=== PATIENT | male | born 1970 ===

== ENCOUNTER 2016-12-24 06:07 | Inpatient (IN) | payer OTHER ==
[~2016-12-24] VITALS: Ht 175.3 cm; Wt 120.2 kg
[2016-12-24] VITALS (13 sets, daily range): BP systolic 99–126; BP diastolic 54–80
[~2016-12-24 06:07] MED LIST: CYCLOBENZAPRINE10 MG ORAL; LR 1000ml 1,000 ML IV SCH; NAPROXEN500 M2 ORAL; ceFAZolin sod 2 GM in D5W 110 ML IVPB ONE
[2016-12-24 07:22] LABS: APPEARANCE,URINE CLEAR; KETONES,URINE NEGATIVE (NEGATIVE); LEUKOCYTE ESTERASE ,URINE NEGATIVE (NEGATIVE); NITRITE,URINE NEGATIVE (NEGATIVE); PH,URINE 5 (4.5-8.0); PROTEIN,URINE NEGATIVE (NEGATIVE); UROBILINOGEN,URINE NORMAL MG/DL (0.0-1.0)
[2016-12-24] MEDS ORDERED: Thrombin 5000 units TOPIC ONE (07:34)
[2016-12-24] MEDS ORDERED: Bupivacaine w/Epi 0.5% 30ml Vial INJ ONE (07:35)
[2016-12-24] MEDS ORDERED: Bacitracin 50000 Units Vial ONE (07:35)
[2016-12-24] MEDS ORDERED: Thrombin 5000 units spray kit TOPIC ONE (07:35)
[2016-12-24] MEDS ORDERED: Gelfoam Absorbable 1gm powder pkt TOPIC ONE (07:35)
[2016-12-24 07:53] LABS: BACTERIA,URINE OCCASIONAL /HPF; SQUAMOUS EPITHELIAL CELL,UR OCCASIONAL /LPF (NONE/OCC); WBC,URINE 0-2 /HPF (0 - 0)
[2016-12-24 07:54] LABS: MUCUS,URINE FEW /LPF (NONE/OCC)
[2016-12-24] MEDS ORDERED: Midazolam 2mg/2ml Inj ONE (08:00)
[2016-12-24] MEDS ORDERED: fentaNYL 100 mcg/2 mL IV ONE (08:00)
[2016-12-24] MEDS ORDERED: Glycopyrrolate 0.2mg/ml 1ml Vial ONE (08:00)
[2016-12-24] MEDS ORDERED: Propofol 10mg/ml 100ml btl IV ONE (08:00)
[2016-12-24] MEDS ORDERED: Sterile Water Irrig 1000ml IRRIG ONE (08:00)
[2016-12-24] MEDS ORDERED: Nimbex 2mg/ml Inj 10ML IVP ONE (08:00)
[2016-12-24] MEDS ORDERED: NS Irrig 1000ml ONE (08:00)
[2016-12-24] MEDS ORDERED: LR 1000ml ONE (08:00)
[2016-12-24] MEDS ORDERED: Neostigmine 1mg/ml 10ml Inj ONE (08:00)
--- NOTE | 2016-12-24 08:06 | Pre-Procedure Note/Attestation ---
Pre-Procedure Note/Attestation Complete Prior to Procedure Procedure Narrative: l45S1 r lami/discectomy Indications for Procedure Pre-Operative Diagnosis: L4-s1 Hnp with radiculopathy Attestation I attest that I discussed the nature of the procedure; its benefits; risks and complications; and alternatives (and the risks and benefits of such alternatives ), prior to the procedure, with the patient (or the patient's legal student services representative). I attest that, if there was a reasonable possibility of needing a blood transfusion, the patient (or the patient's legal student services representative) was given the [facility] standardized written summary, pursuant to the Volodymyr Genia Blood Safety Act ([place] Health and Safety Code # 1645, as amended). I attest that I re-evaluated the patient just prior to the surgery and that there has been no change in the patient's H&P, except as documented below: ANTOINE CLEMENTS Dec 24, 2016 08:06
--- NOTE | 2016-12-24 08:49 | Brief Operative Note ---
Immediate Post Operative Note Operative Note Pre-op Diagnosis: L4-s1 Hnp with radiculopathy Procedure: L45s1 Laminectomy/discectomy R side Post-op Diagnosis: same as pre-op Findings: consistent w/pre-op dx studies Surgeon: rosa Fitter Placer: jeremy lucero Anesthesiologist: brittnee Anesthesia: general Specimen: none Complications: none Condition: stable Estimated Blood Loss: minimal Drains: none Implant(s) used?: No ANTOINE CLEMENTS Dec 24, 2016 08:49
[2016-12-24] MEDS ORDERED: LR 1000ml 1,000 ML IVLG SCH (09:19)
--- NOTE | 2016-12-24 09:25 | Anethesia Preoperative Eval ---
Anesthesia Pre-op PMH/ROS General Date of Evaluation: Dec 24, 2016 Time of Evaluation: 08:00 Anesthesiologist: Raisa ASA Score: ASA 2 Mallampati Score Class I : Soft palate, uvula, fauces, pillars visible Class II: Soft palate, uvula, fauces visible Class III: Soft palate, base of uvula visible Class IV: Only hard plate visible Mallampati Classification: Class IV Surgeon: Griselda Diagnosis: Lumbar spinal stenosis Surgical Procedure: Laminectomy L4-5, L5-S1 Anesthesia History: none Family History: no anesthesia problems Allergies: Coded Allergies: No Known Allergies (Unverified , 12/23/16) Medications: see eMAR Past Medical History Cardiovascular: Denies: CAD, HTN, VT, arrhythmia, other, valve dz Pulmonary: Denies: COPD, SARITHA, asthma, other Gastrointestinal/Genitourinary: Denies: CRI, ESRD, GERD, other Neurologic/Psychiatric: Denies: CVA, TIA, dementia, depression/anxiety, other Endocrine: Denies: DM, hypothyroidism, other, steroids HEENT: Denies: [place] (L), [place] (R), cataract (L), cataract (R), glaucoma, other Hematology/Immune: Denies: DVT, anemia, bleeding disorder, other Musculoskeletal/Integumentary: Denies: DDD, DJD, OA, RA, edema, other Other: obesity PMH Narrative: Obesity PSxH Narrative: Denies prior surgery Anesthesia Pre-op Phys. Exam Physician Exam Last Vital Signs Date Time Temp Pulse Resp B/P Pulse Ox O2 Delivery O2 Flow Rate FiO2 12/24/16 07:21 98.5 66 18 109/56 96 Room Air Constitutional: NAD Neurologic: CN 2-12 intact Cardiovascular: RRR, no M/R/G Respiratory: CTA Gastrointestinal: S/NT/ND Airway Exam Mallampati Score: Class IV MO: full ROM: full Teeth: intact Anesthesia Pre-op A/P Labs WNL Studies Pre-op Studies: EKG - NSR Risk Assessment & Plan Assessment: Obese male with Class 4 airway for laminectomy L4-5, L5-S1 Plan: GETA, [place] scope intubation Status Change Before Surgery: No Pre-Antibiotics Drug: Ancef Given Within 1 Hr of Incision: Yes Time Given: 08:30 RASHEED PUENTE M.D. Dec 24, 2016 09:25
--- NOTE | 2016-12-24 09:26 | Immediate Post-Op Evaluation ---
Immediate Post-Op Evalulation Immediate Post-Op Evalulation Procedure: Lumbar laminectomy L4-5, L5-S1 Date of Evaluation: Dec 24, 2016 Time of Evaluation: 11:00 IV Fluids: 900 Estimated Blood Loss: 30 Blood Pressure Systolic: 102 Blood Pressure Diastolic: 56 Pulse Rate: 95 Respiratory Rate: 11 O2 Sat by Pulse Oximetry: 98 Temperature (Fahrenheit): 97.8 Pain Score (1-10): 1 Nausea: No Vomiting: No Complications No complication Patient Status: awake, patent, extubated, none Hydration Status: adequate Drug: Ancef Given Within 1 Hr of Incision: Yes Time Given: 08:30 RASHEED PUENTE M.D. Dec 24, 2016 09:26
[2016-12-24] MEDS ORDERED: LR 1000ml 1,000 ML IV SCH (09:30)
[2016-12-24] MEDS ORDERED: Hydromorphone 0.5mg/0.5ml inj IVP PRN (09:30)
[2016-12-24] MEDS ORDERED: Meperidine 25mg/0.5ml Inj IV PRN (09:30)
[2016-12-24] MEDS ORDERED: LORazepam Inj 2mg/ml 1ml IV PRN (09:30)
[2016-12-24] MEDS ORDERED: HYDROmorphone 1mg/ml Carpuject IVP PRN (10:15)
[2016-12-24] MEDS ORDERED: Norco 7.5mg/325mg tab ORAL PRN ×2 (10:15)
[2016-12-24] MEDS ORDERED: Metoclopramide 10mg/2ml Inj IVP PRN (10:15)
[2016-12-24] MEDS ORDERED: HYDROmorphone 1mg/ml Carpuject SUBQ PRN (10:15)
[2016-12-24] MEDS ORDERED: traMADol 50mg tab ORAL PRN (10:15)
[2016-12-24] MEDS ORDERED: Norco 5mg/325mg tab ORAL PRN (10:15)
[2016-12-24] MEDS ORDERED: Milk of Magnesia 30ml Ud ORAL PRN (10:15)
[2016-12-24] MEDS ORDERED: D5 1/2NS 1,000 ML IV SCH (13:00)
[2016-12-24] MEDS: Norco 10mg/325mg tab ORAL PRN (14:25)
[2016-12-24] MEDS: D5 1/2NS 1,000 ML IV SCH (14:26)
[2016-12-24] MEDS ORDERED: Chloraseptic Spray 20mL Bottle ORAL PRN (14:30)
[2016-12-24] MEDS: ceFAZolin sod 1 GM in D5W 55 ML IV SCH (16:54)
[2016-12-24] MEDS: Hydromorphone 0.5mg/0.5ml inj IVP PRN ×2 (17:50→20:58)
[2016-12-24] MEDS: Docusate 100mg cap ORAL SCH (18:00)
--- NOTE | 2016-12-24 20:30 | Operative Note - Dictated ---
DATE OF OPERATION: 12/24/2016 SURGEON: Giancarlo Villalobos M.D. FITNESS TRAINER: Brandon Arias PA-C. ANESTHESIOLOGIST: Dr. Galindo. ANESTHESIA TYPE: General endotracheal anesthesia. PREOPERATIVE DIAGNOSES: 1. L5-S1 disk herniation right side with radiculopathy. 2. Lateral recess stenosis L4-L5 and L5-S1. POSTOPERATIVE DIAGNOSES: 1. L5-S1 disk herniation right side with radiculopathy. 2. Lateral recess stenosis L4-L5 and L5-S1. PROCEDURE: 1. Hemilaminectomy and medial facetectomy, right side L4-5 and right-side L5-S1. 2. Microscopic diskectomy, right side L5-S1. 3. Use of operating microscope. 4. Neurolysis. 5. Neurodiagnostic monitoring. 6. Use of fluoroscopy for localization purposes. ESTIMATED BLOOD LOSS: Minimal. COMPLICATIONS: None. FINDINGS: 1. Disc extrusion right side directly under the nerve root along the lateral recess L5-S1 and notable nerve root irritation right side L4-L5 with lateral recess stenosis. 2. Chronic disc herniation with neovascularization and adhesions. INDICATIONS: The patient is a very pleasant gentleman with intractable right lower extremity radicular pain as well as mechanical back pain. MRI confirmed disc extrusion right side L5-S1 and lateral recess stenosis L4-L5. Surgical intervention was discussed and he elected to proceed after conservative care has failed. RISK NOTE: The patient was explained in detail the risks and benefits of surgery to include, but not be limited to those of bleeding, infection, damage to nerves, vessels, tendons, anesthetic risk, allergic reaction, aspiration, and possibly . The patient understood and wished to proceed. OPERATIVE PROCEDURE IN DETAIL: The patient was taken operative suite. After general endotracheal anesthesia was obtained, he was turned prone onto a radiolucent table. All bony prominences were well padded. The back was prepped and draped in usual sterile fashion. Ada were placed at L4-L5 and L5-S1 and radiographically confirmed. At this point, skin was infiltrated with Marcaine with epinephrine. Incision was carried out on the midline L4 through S1 and subperiosteal dissection was carried out. Self-retaining retractor was put into place and the level at L4-L5 was once again reconfirmed. Operating microscope was then brought into place and a hemilaminotomy on the right side L4-L5 was performed with combination of high-speed drill, Kerrison punch, curettes and pituitaries. Ligamentum flavum was removed in a piecemeal fashion. The dural sac and nerve root was identified and noted to be markedly compressed on the right side, however, once the laminectomy was performed, decompression was safely achieved. Once this area was packed off, attention was turned to the L5-S1 level. Similarly, hemilaminectomy was performed at L5 and the superior portion of S1. Medial facetectomy was performed. Ligamentum flavum was removed in a piecemeal fashion. The nerve root was exceedingly tight and markedly scarred and neurolysis was performed. Then gentle nerve root retractor was achieved until the disk extrusion could be identified. The posterior longitudinal ligament was incised and a large extruded disk fragment was delivered. Copious irrigation was performed. The disk space itself had only a minimal rent and thus we have elected not to perform a formal intradiscal decompression. Meticulous hemostasis was achieved with bipolar and FloSeal. Copious irrigation was performed. Decision was made to close. Fascia was repaired using #1 Vicryl, subcutaneous closure using 2-0 Vicryl, Dermabond and sterile dressing was applied. The patient was awaiting extubation at time of this dictation. Giancarlo Villalobos M.D. DR: TERRY JOB#: [id number] CC:
[2016-12-25] VITALS: BP 127/72
[2016-12-25] MEDS: ceFAZolin sod 1 GM in D5W 55 ML IV SCH ×2 (00:18→08:59)
[2016-12-25] MEDS: D5 1/2NS 1,000 ML IV SCH ×2 (00:21→17:35)
[2016-12-25] MEDS: Hydromorphone 0.5mg/0.5ml inj IVP PRN ×2 (00:30→04:26)
--- NOTE | 2016-12-25 01:00 | Consultation ---
DATE OF CONSULTATION: 12/24/2016 CONSULTING PHYSICIAN: Kevin Emmanuel M.D. REFERRING PHYSICIAN: Giancarlo Villalobos M.D. REASON FOR CONSULTATION: Acute pain consult. HISTORY OF PRESENT ILLNESS: Dear Dr. Giancarlo Villalobos, Thank you kindly for consulting me to evaluate and render an opinion as to how to proceed in the management of the patient's acute postoperative lumbar spine after his lumbar spine decompressive surgery today. 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 He injured his lumbar spine in a work-related injury back in September 2015. Today, he underwent a decompressive lumbar spine surgery by Dr. Villalobos to help improve his intractable left lower extremity pain. The patient complains of significant discomfort postoperatively and you consulted me for acute pain consultation. I saw the patient at bedside where I performed a detailed history and physical examination. I spent over 75 minutes in consultation with an additional 30 minutes in medical record review. PAST MEDICAL HISTORY: 1. Acute postoperative lumbar spine pain, status post decompressive lumbar spine surgery Dr. Giancarlo Villalobos in December 2016. 2. Work-related injury. 3. Obesity. 4. Distant tobacco usage, quit 10 years ago. 5. Morbid obesity. 6. Erectile dysfunction. PAST SURGICAL HISTORY: Dental surgery in 2012. ALLERGIES: No known drug allergies. MEDICATIONS: At home NSAIDs, p.r.n. [place]. SOCIAL HISTORY: The patient lives with a male roommate in [place]. The patient denies alcohol usage. The patient quit tobacco 10 years ago. The patient denies marijuana usage. FAMILY HISTORY: Noncontributory. REVIEW OF SYSTEMS: Per attending physician. PHYSICAL EXAMINATION: VITAL SIGNS: Age 46, height 175 cm, weight 120 kg, and body mass index 39. Pain level is 7/10 on the visual analog pain scale. Afebrile, pulse 80, respirations 20, blood pressure 111/63, and iron saturation 97% on supplemental oxygen. GENERAL: This is a 46-year-old gentleman, who appears his stated age. HEENT: Normocephalic and atraumatic. CHEST: Clear to auscultation. HEART: Regular rate and rhythm. ABDOMEN: Moderately obese. Positive bowel sounds. Significant pain in midline back incision area with log-rolling. EXTREMITIES: He is moving all extremities x4. NEUROLOGIC: Straight leg raising and detailed neurologic exam deferred to Dr. Villalobos. BACK: Lumbar spine dressing appears clean and dry. Minimal paraspinal muscle spasms appreciated. DIAGNOSTIC TESTING: EKG in December 2016 shows normal sinus rhythm, ventricular rate 75, no evidence for acute cardiac ischemia. MRI of the lumbar spine dated 10/15/2016, impression is L3-L4, 4-5 mm left greater than right disk bulge, L4-L5, 5-6 mm right greater than left disk bulge, L5-S1, 6-7 mm left disk bulge contributing to mild spinal canal stenosis with cord compression and displacement of the right S1 nerve root. LABORATORY TESTING: On 12/12/2016 shows white count 10, hematocrit 44, and platelets 300,000. INR is 1.0. PTT is 24. Urinalysis negative. Glucose is 163. Sodium 141, potassium 3.8, chloride 106, bicarbonate 26, BUN 14, and creatinine 1.1. Calcium is 9.3. IMPRESSION: 1. Acute postoperative lumbar spine pain status post decompressive lumbar spine surgery by Dr. Giancarlo Villalobos in December 2016. 2. Work-related injury. 3. Obesity. 4. Distant tobacco usage, quit 10 years ago. 5. Morbid obesity. 6. Erectile dysfunction. TREATMENT AND RECOMMENDATIONS: To help with this patient's pain control, I have devised the following analgesic plan. I spoke with the recovery room nurse who was using Dilaudid on this patient for breakthrough pain. I will continue that dosing of Dilaudid here on the floor at a frequency of every three hours 0.5 mg IV Dilaudid p.r.n. for severe breakthrough pain. I will trial the patient on hydrocodone/[place] 10/325 mg 1 tablet orally every three hours p.r.n. for moderate pain complaints. The patient does not appear to be anxious and does not drink alcohol or take benzodiazepines regularly. I would therefore hold off on the class of benzodiazepines as well as muscle relaxants at this time and start on mu-opioid narcotics for primary analgesia. We will see how the patient is able to ambulate out of bed, to see if muscle relaxant agents are necessary and may be helpful. Given the nausea symptoms, I have ordered Zofran 4 mg intravenously every four hours p.r.n. as a first-line agent with a breakthrough dose of Phenergan 12.5 mg intramuscularly every 8 hours p.r.n. For gastrointestinal ulcer prophylaxis, I have placed him on some Protonix 40 mg nightly with a p.r.n. dose of Mylanta 30 mL every 6 hours in case of any GERD symptom exacerbation. I have ordered Benadryl 25 mg orally every 6 hours p.r.n. for itching. I have also ordered a Chloraseptic spray bottle at the bedside to help with the postoperative sore throat complaints. For the patient's obesity, I will defer DVT prophylaxis to the surgeon. I have ordered incentive spirometer with history of distant tobacco usage, to encourage good pulmonary toilet, and help reduce the risk of postop pneumonia and atelectasis. I have given the prescription for 15 [place] tablets for outpatient usage. 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 The patient does live with a roommate who is not around much and the patient has difficulty obtaining his p.r.n. pain medications from the hospital discharge. A comprehensive review of the medical record was performed. Records reviewed from multiple reports from today's date of surgery including consent for surgical treatment, consent for anesthesia, consent for blood products, medication administration record, medication reconciliation order form, PACU records, PACU orders, anesthesia record, pre and post anesthesia evaluation record, guidelines of prophylactic antibiotics and DVT prophylaxis. Reviewed records from the nursing team nursing care, 24-hour medical and surgical solution. Reviewed Preop history and physical by Dr. Boris Robles on 12/12/2016 along with 12-lead EKG, laboratory studies, and chest x-ray. Kevin Emmanuel M.D. DR: SLAVA JOB#: [id number] CC:
[2016-12-25 04:00] VITALS: BP 112/74
[2016-12-25 06:19] LABS: MEAN CORPUSCULAR HEMOGLOBIN 33.8 PG (27.0-31.0); MEAN CORPUSCULAR HGB CONC 35.9 G/DL (32.0-36.0); MEAN CORPUSCULAR VOLUME 94 FL (80-99); MEAN PLATELET VOLUME 7.1 FL (6.5-10.1); PLATELET COUNT 209 K/UL (150-450); RED BLOOD COUNT 4.03 M/UL (4.70-6.10); WHITE BLOOD COUNT 18.5 K/UL (4.8-10.8)
[2016-12-25] MEDS ORDERED: Norco 10mg/325mg tab ORAL ONE (07:00)
--- NOTE | 2016-12-25 07:45 | Progress Note ---
DATE: 12/25/2016 ACUTE PAIN MANAGEMENT PHYSICIAN PROGRESS NOTE: LABORATORY STUDIES: Morning laboratory studies are pending. MEDICATIONS: Medication administration record reviewed. Medications include Colace, Protonix, IV fluid . P.r.n. medications include Restoril, Tylenol, milk of magnesia, Benadryl ,Chloraseptic spray, Catapres, Zofran, Phenergan, [place], Dilaudid, and Mylanta. I saw the patient at the bedside. After discussion with the nurse I discussed the case with the surgeon, Dr. Villalobos. The patient has already been out of bed to the restroom at several times without any lightheadedness or dizziness. The patient states that his lower extremity pains have nearly completely resolved since surgery. This is extremely encouraging after his decompressive lumbar spine surgery yesterday. He continues to have incisional pain, which has been treated primarily with IV Dilaudid overnight. I will switch him over to oral [place] . The [place] was tolerated earlier yesterday. The patient continues on IV fluids. He did have an episode of emesis this morning. The nausea has resolved. He is scheduled for a regular diet this morning and I will order [place] with his breakfast to test for tolerability and efficacy to help expedite his hospital discharge. Regarding discharge planning, the patient does live at home with a roommate who is not at home much. The patient also may have difficulty obtaining his prescription for [place] pills. I did ask the child support case officer to evaluate the patient and try to assist with obtaining the patient's outpatient prescription. Due to these administrative issues, the patient buy himself with a roommate who is not home much, it is unclear if the patient will be discharged home today, will need another day in the hospital until he is more functional to enable himself to take care of himself . Kevin Emmanuel M.D. DR: Gretta JOB#: [id number] CC:
[2016-12-25 08:07] LABS: BAND NEUTROPHILS % (MANUAL) 0 % (0-8); BASOPHILS % (MANUAL) 0 % (0-2); EOSINOPHILS % (MANUAL) 0 % (0-3); LYMPHOCYTES % (MANUAL) 4 % (20-45); NEUTROPHILS % (MANUAL) 87 % (45-75); PLATELET ESTIMATE ADEQUATE; PLATELET MORPHOLOGY NORMAL; TOTAL CELLS COUNTED 100
[2016-12-25 08:11] VITALS: BP 113/69
[2016-12-25] MEDS: Docusate 100mg cap ORAL SCH ×2 (08:59→17:35)
--- NOTE | 2016-12-25 12:06 | 48 Hour Post Anesthesia Eval ---
Post Anesthesia Evaluation Procedure: Lumbar laminectomy L4-5, L5-S1 Date of Evaluation: Dec 25, 2016 Time of Evaluation: 07:15 Blood Pressure Systolic: 112 0: 74 Pulse Rate: 109 Respiratory Rate: 18 Temperature (Fahrenheit): 98.2 O2 Sat by Pulse Oximetry: 97 Airway: patent Nausea: No Vomiting: No Pain Intensity: 3 Hydration Status: adequate Cardiopulmonary Status: at baseline Mental Status/LOC: patient returned to baseline Post-Anesthesia Complications: 0 Follow-up care needed: N/A - further care as per primary team AMIRA NUÑEZ M.D. Dec 25, 2016 12:06
[2016-12-25 12:28] VITALS: BP 113/78
[2016-12-25 16:01] VITALS: BP 117/77
[2016-12-25 20:00] VITALS: BP 112/72
[2016-12-26 04:00] VITALS: BP 117/77
[2016-12-26] MEDS: D5 1/2NS 1,000 ML IV SCH (04:54)
[2016-12-26 07:49] VITALS: BP 131/81
--- NOTE | 2016-12-26 08:15 | Progress Note ---
DATE: 12/26/2016 ACUTE PAIN MANAGEMENT PHYSICIAN'S PROGRESS NOTE: MEDICATIONS: Medication administration record was reviewed. Medications include Tylenol, Mylanta, Catapres, Benadryl, Colace, milk of magnesia, Zofran, Protonix, Chloraseptic, Phenergan, Restoril, and [place]. LABORATORY STUDIES: Laboratory studies from yesterday 12/25/2016 showed white count 19, postoperative reactive, hematocrit 38, and platelets 210,000. VITAL SIGNS: Afebrile, pulse 78, respirations 16, blood pressure 117/77, and oxygen saturation 94% on room air. SUMMARY: I saw the patient at the bedside. I discussed the case with the nurse RN Phylicia along with the surgeon, Dr. Villalobos. The patient's mother is accompanying the patient overnight in his room for good social support. The patient this morning is ambulating out of bed without assistance. He is brushing his teeth and tolerating advancing diet. The nausea symptoms have improved. His pain is well controlled on oral analgesics. I discontinued the Dilaudid yesterday and he has been tolerating his pain levels off of parenteral narcotics. I did the patient's prescriptions for [place] for outpatient usage. The patient seems to be neurologically intact with good motor strength in bilateral lower extremities. The patient is tolerating oral intake and is passing flatus without difficulty. The patient denies any shortness of breath or chest pain. The patient does have a prescription card from his insurance carrier, [employer] to help and fill the prescription once he returns to his home in [place]. His roommate will be able to drive him home later today and I agree with discharge trial to home at this time. Kevin Emmanuel M.D. DR: Daniel JOB#: [id number] CC:
[2016-12-26] MEDS: Norco 10mg/325mg tab ORAL PRN ×2 (08:24→12:49)
[2016-12-26] MEDS: Docusate 100mg cap ORAL SCH (08:24)
[2016-12-26 11:58] VITALS: BP 120/80
[2016-12-26] MEDS ORDERED: NORCO 10-325 T1 EACH ORAL ×2 (12:25→12:26)
[2016-12-26] MEDS ORDERED: D5 1/2NS 1000ml IV ONE (12:29)
--- NOTE | 2016-12-27 10:48 | Discharge Summary ---
Discharge Summary Hospital Course Date of Admission Dec 24, 2016 at 06:07 Date of Discharge Dec 26, 2016 at 12:30 Admitting Diagnosis HPI Dillon Gregory is a 46 year old male who was admitted on Dec 24, 2016 at 06:07 for Lumbar Spine Stenosis Hospital Course [id number] Discharge Discharge Disposition Patient was discharged to Home (01) Discharge Diagnoses: Jacqueline Stewart NP Dec 27, 2016 10:48
--- NOTE | 2016-12-28 00:45 | Discharge Summary 2 SIG ---
DATE OF ADMISSION: 12/24/2016 DATE OF DISCHARGE: 12/26/2016 CONSULTANTS: Kevin Emmanuel M.D. 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 MRI confirmed disk extrusion on the right side at L5-S1 and lateral recess stenosis at L4-L5. Conservative management has failed and patient underwent decompressive lumbar spine surgery by Dr. Villalobos on 12/24/2016. He tolerated the procedure well. Postoperatively, he was given pain management by Dr. Emmanuel. He underwent physical therapy and occupational therapy. The patient was ambulating in the hallways and was tolerating diet well. He was provided with a front-wheel walker, and the patient was discharged home. FINAL DIAGNOSES: L5-S1 disc herniation with radiculopathy and lateral recess stenosis on L4-L5 and L5-S1, status post hemilaminectomy and medial facetectomy, right-sided L4-5 and right-sided L5-S1. (Refer to operative report) Giancarlo Villalobos M.D. I have been assigned to dictate discharge summary on this account and I was not involved in the patient's management. Jacqueline Stewart N.P. DR: GINO JOB#: [id number] CC: LASHON
== END 2016-12-26 12:30 | disposition home or self-care (01) | DRG 520 ==
LOC: SDSOVERFLO 06:07 → 3E 12:15
PROC: 01NB0ZZ Release Lumbar Nerve, Open Approach (ICD-10-PCS; principal; 2016-12-24 08:00)
PROC: 0SB40ZZ Excision of Lumbosacral Disc, Open Approach (ICD-10-PCS; principal; 2016-12-24 08:00)
DX: M51.17 Intervertebral disc disorders with radiculopathy, lumbosacral region (principal); E66.01 Morbid (severe) obesity due to excess calories; E66.9 Obesity, unspecified; M48.06 Spinal stenosis, lumbar region; M48.07 Spinal stenosis, lumbosacral region; Z87.891 Personal history of nicotine dependence; X50.0XXS Overexertion from strenuous movement or load, sequela; Y99.0 Civilian activity done for income or pay; Z68.39 Body mass index [BMI] 39.0-39.9, adult
CPT/HCPCS: 36415; 72020; 76001; 81001; 85007; 85025; 86850; 86900; 86901; 87081; 94003; 94150; J2250; J2710